=== PATIENT | male | born 1975 | race Caucasian/White ===

== ENCOUNTER → 2019-09-03 08:41 | Outpatient (BNVA) | payer MEDICARE, SELFPAY | PROVIDERS: Family Provider Nurse Practitioner Family; PCP Nurse Practitioner Family; Visit Provider Nurse Practitioner | DX: G89.29 Other chronic pain (principal); M54.42 Lumbago with sciatica, left side; M25.552 Pain in left hip; Z98.890 Other specified postprocedural states; Z87.828 Personal history of other (healed) physical injury and trauma; Z79.891 Long term (current) use of opiate analgesic | CPT/HCPCS: 99214 ==

== ENCOUNTER → 2019-10-01 11:15 | Outpatient (BNVA) | payer MEDICARE, SELFPAY | PROVIDERS: Family Provider Nurse Practitioner Family; PCP Nurse Practitioner Family; Visit Provider Nurse Practitioner | DX: G89.29 Other chronic pain (principal); M54.42 Lumbago with sciatica, left side; Z79.891 Long term (current) use of opiate analgesic | CPT/HCPCS: 99213 ==

== ENCOUNTER → 2019-10-29 14:26 | Outpatient (BNVA) | payer MEDICARE, SELFPAY | PROVIDERS: Family Provider Nurse Practitioner Family; PCP Nurse Practitioner Family; Visit Provider Anesthesiology | DX: M54.42 Lumbago with sciatica, left side (principal); M43.16 Spondylolisthesis, lumbar region; Z87.828 Personal history of other (healed) physical injury and trauma; Z79.891 Long term (current) use of opiate analgesic | CPT/HCPCS: 99213; 99214 ==

== ENCOUNTER → 2020-03-12 09:46 | Outpatient (BNVA) | payer MEDICARE, SELFPAY | PROVIDERS: Family Provider Nurse Practitioner Family; PCP Nurse Practitioner Family; Visit Provider Anesthesiology | DX: G89.29 Other chronic pain (principal); M54.42 Lumbago with sciatica, left side; M43.16 Spondylolisthesis, lumbar region; Z87.828 Personal history of other (healed) physical injury and trauma; Z79.891 Long term (current) use of opiate analgesic | CPT/HCPCS: 99214 ==

== ENCOUNTER → 2020-03-16 09:21 | Outpatient (BNVA) | payer MEDICARE, SELFPAY | PROVIDERS: Family Provider Nurse Practitioner Family; PCP Nurse Practitioner Family; Visit Provider Nurse Practitioner Family | DX: E78.2 Mixed hyperlipidemia (principal); E34.9 Endocrine disorder, unspecified; F41.9 Anxiety disorder, unspecified; F32.9 Major depressive disorder, single episode, unspecified; E29.1 Testicular hypofunction; E55.9 Vitamin D deficiency, unspecified; M79.673 Pain in unspecified foot; Z79.899 Other long term (current) drug therapy; R53.83 Other fatigue | CPT/HCPCS: 73610; 73630; 80061; 81001; 83036; 84403; 84443 ==

== ENCOUNTER → 2020-04-15 15:29 | Outpatient (BNVA) | payer MEDICARE, SELFPAY | PROVIDERS: Family Provider Nurse Practitioner Family; PCP Nurse Practitioner Family; Referring Provider Nurse Practitioner Family; Visit Provider Podiatrist Foot & Ankle Surgery | DX: T14.8XXA Other injury of unspecified body region, initial encounter (principal); X58.XXXA Exposure to other specified factors, initial encounter | CPT/HCPCS: 73610 ==

== ENCOUNTER 2020-04-15 16:02 | Outpatient (CLI) | payer MEDICARE, SELFPAY | END 2020-04-15 16:03 | disposition home or self-care (01) | LOC: SPT 16:03 | PROVIDERS: Family Provider Nurse Practitioner Family; PCP Nurse Practitioner Family; Visit Provider Podiatrist Foot & Ankle Surgery | DX: Z45.89 Encounter for adjustment and management of other implanted devices (principal); S92.109D Unspecified fracture of unspecified talus, subsequent encounter for fracture with routine healing; S82.53XD Displaced fracture of medial malleolus of unspecified tibia, subsequent encounter for closed fracture with routine healing; X58.XXXD Exposure to other specified factors, subsequent encounter | CPT/HCPCS: 73610; 97760; L4361 ==

== ENCOUNTER → 2020-04-29 14:22 | Outpatient (BNVA) | payer MEDICARE, SELFPAY | PROVIDERS: Family Provider Nurse Practitioner Family; PCP Nurse Practitioner Family; Visit Provider Podiatrist Foot & Ankle Surgery | DX: S82.892A Other fracture of left lower leg, initial encounter for closed fracture (principal); X58.XXXA Exposure to other specified factors, initial encounter; Z46.89 Encounter for fitting and adjustment of other specified devices; S82.53XD Displaced fracture of medial malleolus of unspecified tibia, subsequent encounter for closed fracture with routine healing; S92.109D Unspecified fracture of unspecified talus, subsequent encounter for fracture with routine healing; X58.XXXD Exposure to other specified factors, subsequent encounter | CPT/HCPCS: 73610; 97760; L1902 ==

== ENCOUNTER 2020-04-29 15:13 | Outpatient (CLI) | payer MEDICARE, SELFPAY | END 2020-04-29 15:14 | disposition home or self-care (01) | LOC: SPT 15:14 | PROVIDERS: Family Provider Nurse Practitioner Family; PCP Nurse Practitioner Family; Visit Provider Podiatrist Foot & Ankle Surgery | DX: Z46.89 Encounter for fitting and adjustment of other specified devices (principal); S82.53XD Displaced fracture of medial malleolus of unspecified tibia, subsequent encounter for closed fracture with routine healing; S92.109D Unspecified fracture of unspecified talus, subsequent encounter for fracture with routine healing; X58.XXXD Exposure to other specified factors, subsequent encounter | CPT/HCPCS: 97760; L1902 ==

== ENCOUNTER → 2020-05-19 09:58 | Outpatient (BNVA) | payer MEDICARE, SELFPAY | PROVIDERS: Family Provider Nurse Practitioner Family; PCP Nurse Practitioner Family; Visit Provider Anesthesiology | DX: G89.29 Other chronic pain (principal); M54.42 Lumbago with sciatica, left side; M43.16 Spondylolisthesis, lumbar region; M79.672 Pain in left foot; Z87.828 Personal history of other (healed) physical injury and trauma; Z79.891 Long term (current) use of opiate analgesic | CPT/HCPCS: 99213; 99214 ==

== ENCOUNTER → 2020-06-18 09:47 | Outpatient (BNVA) | payer MEDICARE, SELFPAY | PROVIDERS: Family Provider Nurse Practitioner Family; PCP Nurse Practitioner Family; Visit Provider Nurse Practitioner Family | DX: E34.9 Endocrine disorder, unspecified (principal); E11.9 Type 2 diabetes mellitus without complications; E55.9 Vitamin D deficiency, unspecified; E78.2 Mixed hyperlipidemia; R53.83 Other fatigue | CPT/HCPCS: 36415; 80053; 80061; 81003; 82306; 83036; 84402; 84403; 84443; 85025 ==

== ENCOUNTER → 2020-07-21 12:55 | Outpatient (BNVA) | payer MEDICARE, SELFPAY | PROVIDERS: Family Provider Nurse Practitioner Family; PCP Nurse Practitioner Family; Visit Provider Anesthesiology | DX: G89.29 Other chronic pain (principal); M43.16 Spondylolisthesis, lumbar region; M54.42 Lumbago with sciatica, left side; Z87.828 Personal history of other (healed) physical injury and trauma; Z79.891 Long term (current) use of opiate analgesic | CPT/HCPCS: 99212; 99214 ==

== ENCOUNTER → 2020-09-15 13:29 | Outpatient (BNVA) | payer MEDICARE, SELFPAY | PROVIDERS: Family Provider Nurse Practitioner Family; PCP Nurse Practitioner Family; Visit Provider Anesthesiology | DX: G89.29 Other chronic pain (principal); M54.42 Lumbago with sciatica, left side; M43.16 Spondylolisthesis, lumbar region; Z87.828 Personal history of other (healed) physical injury and trauma; Z79.899 Other long term (current) drug therapy; Z79.891 Long term (current) use of opiate analgesic | CPT/HCPCS: 99213 ==

== ENCOUNTER → 2020-10-20 14:15 | Outpatient (BNVA) | payer MEDICARE, SELFPAY | PROVIDERS: Family Provider Nurse Practitioner Family; PCP Nurse Practitioner Family; Visit Provider Anesthesiology | DX: G89.29 Other chronic pain (principal); M54.42 Lumbago with sciatica, left side; M43.16 Spondylolisthesis, lumbar region; Z87.828 Personal history of other (healed) physical injury and trauma; Z79.899 Other long term (current) drug therapy; Z79.891 Long term (current) use of opiate analgesic | CPT/HCPCS: 99213 ==

== ENCOUNTER → 2020-12-17 12:52 | Outpatient (BNVA) | payer MEDICARE, SELFPAY | PROVIDERS: Family Provider Nurse Practitioner Family; PCP Nurse Practitioner Family; Visit Provider Anesthesiology | DX: G89.29 Other chronic pain (principal); M54.42 Lumbago with sciatica, left side; M43.16 Spondylolisthesis, lumbar region; Z79.899 Other long term (current) drug therapy; Z87.828 Personal history of other (healed) physical injury and trauma; Z79.891 Long term (current) use of opiate analgesic | CPT/HCPCS: 99213 ==

== ENCOUNTER → 2021-01-13 10:40 | Outpatient (BNVA) | payer MEDICARE, SELFPAY | PROVIDERS: Family Provider Nurse Practitioner Family; PCP Nurse Practitioner Family; Visit Provider Nurse Practitioner Family | DX: E34.9 Endocrine disorder, unspecified (principal); E11.9 Type 2 diabetes mellitus without complications; E78.2 Mixed hyperlipidemia; J30.89 Other allergic rhinitis; E29.1 Testicular hypofunction | CPT/HCPCS: 80053; 80061; 83036; 84402; 84403; 85025; G0103 ==

== ENCOUNTER 2021-02-17 09:21 | Outpatient (CLI) | payer MEDICARE, SELFPAY ==
[2021-02-17 09:45] LABS: Basophils % 0.4 %; Hematocrit 56.5 % (42.0-52.0); Hemoglobin 18.7 g/dL (11.7-16.6); Lymphocytes # 2.2 10^3/uL (0.8-4.8); Lymphocytes % 29.2 %; Mean Corpuscular HGB Conc 33.1 g/dL (30.0-36.0); Mean Corpuscular Hemoglobin 29.5 pg (28.0-34.0); Mean Corpuscular Volume 89.3 fL (80-94); Monocytes # 0.6 10^3/uL (0.2-0.9); Monocytes % 7.9 %; Neutrophils # 4.74 10^3/uL (1.8-7.7); Nucleated Red Blood Cells % 0 %; Platelet Count 220 10^3/cmm (130-400); Red Blood Count 6.33 10^6/uL (4.1-5.3); Red Cell Distribution Width 13.7 % (12.1-15.1); White Blood Count 7.6 10^3/uL (4.0-10.0)
--- NOTE | 2021-02-17 11:29 | ONC CON_ITS ---
Dr. Hernandez New Patient Note Patient: Luiz Gurrola Unit #: [id number]: [id number] Dicatated By: Monica Hernandez M.D.Date of Visit: Feb 17, 2021 Onc MED New Patient/Consult Referring Physician: Андрей Merritt NP History of Present Illness: Mr. Luiz Gurrola, is a 45-year-old gentleman with a history of hypogonadism of unknown etiology, on injectable testosterone supplements every 2 weeks for over 1 year. As per patient last month was the first time when he was told about elevated hemoglobin hematocrit, patient went to see his PMD for routine follow-up and his CBC done on January 13, 2021 showed white blood count 7.4 hemoglobin 19 hematocrit 57.7 normal being less than 52%, platelets 229,000, his testosterone level was 74.5. Patient is complaining of off-and-on headaches now more regularly for the last few weeks, he has history of migraine headaches in the past. Denies any blurred vision or double vision, denies any shortness of breath or chest pain, denies any peripheral numbness, denies any palpitation or chest pain. Patient denies smoking, denies any family history of polycythemia blood disorder Past Medical History: Mr. Gurrola's medical history consists of anxiety, depression, hyperlipidemia, low testosterone, migraine, osteoporosis, polycythemia, type II diabetes, and vitamin d deficiency. Past Surgical History: Mr. Gurrola's surgical/procedural history consists of cholecystectomy, insertion of spinal cord stimulator in 2013, 2 level disc replacement in 2008, repair of spinal cord leak in 2006, and lumbar laminectomy in 2005. Medications: Cholecalciferol 1 Capsule (of 1.25 mg ) Oral daily, Effexor XR 1 Capsule (of 37.5 mg) Capsule SR 24 HR Oral daily, HYDROcodone-Acetaminophen 1 Tablet (of 10-325 mg) Oral q 4 hours, Imitrex Tablet Oral PRN, Januvia 1 Tablet (of 50 mg) Oral daily, Lovastatin 1 Tablet (of 20 mg) Oral daily, Singulair 1 Tablet (of 10 mg) Oral daily, Testosterone Cypionate 1 mL (of 200 mg/mL) Intramuscular q 14 days Allergies: fentaNYL Citrate, Methadone HCl, oxyCODONE HCl, and traMADol HCl. Social History: Mr. Gurrola is . Mr. Gurrola has never smoked. He drinks occasionally. 2-3 SHOTS OR CANS OF BEER PER MONTH. Family History: Mr. Gurrola's mother is alive: hypertension. Mr. Gurrola's father is alive: hypertension. Mr. Gurrola has 1 brother who is alive. Review Of Symptoms: Review of Systems is not available for this patient. Vital Signs: Performed on Feb 17, 2021 10:43: 3, 7, 0.00 (LOW), sq.m, 97 %, 64 /min, 18 /min, 126/86 mm(hg), 98.1 F (LOW), and 228 lbs (HIGH). Performance Status: 0 - Fully active, able to carry on all predisease activities without restrictions. (ECOG) Physical Examination: ENMT - No mouth sores, no thrush, no jaundice, no cervical lymphadenopathy, Respiratory - Lungs are clear to auscultation, Cardiovascular - Regular rate and rhythm of heart, Abdomen - Soft, bowel sounds present, Extremities - No visible edema. Lab/Imaging: Most recent lab results are not available for this patient. Impression: Polycythemia, most likely reactive/secondary due to erythropoietic stimulating effect of testosterone supplements,, other possibility could be due to hypoxia but less likely or polycythemia vera less likely Hypogonadism, of unknown etiology, on biweekly injectable testosterone supplement over a year Headaches, multifactorial and or probably due to above Plan: Discussed with patient regarding his labs white blood count 7.6 hemoglobin 18.7 hematocrit 56.5 RBC 6.33 normal being less than 5.3 platelets 220,000 Clinically, patient doing well except progressive headaches, etiology could be multifactorial, as per patient recently he had a CT scan of sinus done which showed no evidence of sinusitis, he has history of migraine headaches but these headaches are different and progressive so concern is whether it is due to hyperviscosity due to polycythemia so we will consider phlebotomy with 250 cc / 250 cc normal saline replacement to avoid hypovolemia. Patient was also advised to take 1 baby aspirin daily and also to maintain hydration. And stop testosterone supplement until hematocrit is below 50 then he can consider transdermal testosterone supplement as when compared to injectable testosterone supplement, there is less chances of polycythemia with transdermal. Patient is also awaiting appointment with endocrinology for evaluation of hypogonadism. And patient was also advised in case there is a worsening of headaches or any other symptoms or any focal weakness, he need to go to hospital otherwise he will return to clinic in 2 weeks with CBC Signed By: Monica Hernandez M.D. <<Signature on File>>
== END 2021-02-17 09:22 | disposition home or self-care (01) ==
LOC: ONCMED 09:25
PROVIDERS: Family Provider Nurse Practitioner Family; PCP Nurse Practitioner Family; Visit Provider Internal Medicine Hematology & Oncology
DX: D75.1 Secondary polycythemia (principal); E29.1 Testicular hypofunction; G44.89 Other headache syndrome; Z79.899 Other long term (current) drug therapy
CPT/HCPCS: 36415; 85025; 99204

== ENCOUNTER 2021-02-18 06:15 | Outpatient (CLI) | payer MEDICARE, SELFPAY ==
[2021-02-18] MEDS: sodium chloride 0.9% 250 ML 999 ML IV (12:40)
== END 2021-02-18 06:16 | disposition home or self-care (01) ==
LOC: ONCMED 06:17
PROVIDERS: PCP Nurse Practitioner Family; Visit Provider Internal Medicine Hematology & Oncology
DX: D45 Polycythemia vera (principal); E29.1 Testicular hypofunction; R51.9 Headache, unspecified; Z79.899 Other long term (current) drug therapy; Z87.891 Personal history of nicotine dependence
CPT/HCPCS: 99195; 99213; J7050

== ENCOUNTER 2021-03-10 05:59 | Outpatient (CLI) | payer MEDICARE, SELFPAY ==
[2021-03-10 08:08] LABS: Basophils # 0.1 10^3/uL (0.0-0.1); Basophils % 0.6 %; Eosinophils % 0.1 %; Hematocrit 51.2 % (42.0-52.0); Hemoglobin 17.1 g/dL (11.7-16.6); Lymphocytes # 3.1 10^3/uL (0.8-4.8); Lymphocytes % 39.8 %; Mean Corpuscular HGB Conc 33.4 g/dL (30.0-36.0); Mean Corpuscular Hemoglobin 29.3 pg (28.0-34.0); Mean Corpuscular Volume 87.7 fL (80-94); Monocytes # 0.5 10^3/uL (0.2-0.9); Monocytes % 6.9 %; Neutrophils # 4.09 10^3/uL (1.8-7.7); Neutrophils % 52.3 %; Nucleated Red Blood Cells % 0 %; Platelet Count 234 10^3/cmm (130-400); Red Blood Count 5.84 10^6/uL (4.1-5.3); Red Cell Distribution Width 12.7 % (12.1-15.1); White Blood Count 7.8 10^3/uL (4.0-10.0)
[2021-03-10] MEDS: sodium chloride 0.9% 250 ML 999 ML IV (10:40)
--- NOTE | 2021-03-10 18:25 | ONC FU_ITS ---
Dr. Hernandez follow up note Patient: Luiz Gurrola Unit #: [id number]: [id number] Dicatated By: Monica Hernandez M.D.Date of Visit:Mar 10, 2021 Onc Med Follow-up/Prog Note History of Present Illness: Mr. Luiz Gurrola, is a 45-year-old gentleman with a history of hypogonadism of unknown etiology, on injectable testosterone supplements every 2 weeks for over 1 year. As per patient last month was the first time when he was told about elevated hemoglobin hematocrit, patient went to see his PMD for routine follow-up and his CBC done on January 13, 2021 showed white blood count 7.4 hemoglobin 19 hematocrit 57.7 normal being less than 52%, platelets 229,000, his testosterone level was 74.5. Patient is complaining of off-and-on headaches now more regularly for the last few weeks, he has history of migraine headaches in the past. Denies any blurred vision or double vision, denies any shortness of breath or chest pain, denies any peripheral numbness, denies any palpitation or chest pain. Patient denies smoking, denies any family history of polycythemia blood disorder Came for follow-up, denies any specific complaint, as per patient since he had phlebotomy done, his headaches are gone by 70 to 80% and he is also off testosterone injection. No fever chills, no nausea or vomiting no diarrhea or constipation, no headaches or blurred vision or double vision, no focal weakness, patient has chronic lower back pain patient tolerated his first phlebotomy on February 18, 2021. Medications: Adult Aspirin EC Low Strength (81 mg) Tablet, enteric coated Oral daily, Cholecalciferol 1 Capsule (of 1.25 mg ) Oral daily, Effexor XR 1 Capsule (of 37.5 mg) Capsule SR 24 HR Oral daily, HYDROcodone-Acetaminophen 1 Tablet (of 10-325 mg) Oral q 4 hours, Imitrex Tablet Oral PRN, Januvia 1 Tablet (of 50 mg) Oral daily, Lovastatin 1 Tablet (of 20 mg) Oral daily, Singulair 1 Tablet (of 10 mg) Oral daily, Testosterone Cypionate 1 mL (of 200 mg/mL) Intramuscular q 14 days Allergies: fentaNYL Citrate, Methadone HCl, oxyCODONE HCl, and traMADol HCl. Review of Systems: Review of Systems is not available for this patient. Vital Signs: Performed on Mar 10, 2021 09:43 Weight - 225.4 lbs (LOW) BSA - 0.00 sq.m BMI - 0.00 Temperature - 97.5 F (LOW) Pulse - 65 /min Respiration - 18 /min BP - 134/92 mm(hg) O2 Sat - 99 % Pain - 7 Fatigue - 0 Performance Status: 0 - Fully active, able to carry on all predisease activities without restrictions. (ECOG) Physical Examination: ENMT - No mouth sores, no thrush, no jaundice, Respiratory - Lungs are clear to auscultation, Cardiovascular - Regular rate and rhythm of heart, Abdomen - Soft, bowel sounds present, Extremities - No visible edema. Lab/Imaging: Most recent lab results are not available for this patient. Impression: Polycythemia, most likely reactive/secondary due to erythropoietic stimulating effect of testosterone supplements,, other possibility could be due to hypoxia but less likely or polycythemia vera less likely Hypogonadism, of unknown etiology, on biweekly injectable testosterone supplement over a year Headaches, multifactorial and or probably due to above Plan: Discussed with patient regarding his labs white blood count 7.8 hemoglobin 17.1 hematocrit 51.2 compared to 56.5, prior to phlebotomy done on February 18, 2021, platelets 234,000 Clinically, patient doing well with no signs symptoms rather significant improvement in chronic headaches since phlebotomy done on February 18, 2021, today's labs show significant improvement in hematocrit now down to 51.2 compared to 56.5 prior to phlebotomy, will proceed with another phlebotomy with 250 cc and replacement with 250 cc normal saline and the meantime patient will continue with aspirin and goal is to keep hematocrit below 54 acquired polycythemia probably due to androgen supplement but we will also consider EPO level as well as JAK2 mutation as if polycythemia vera is confirmed in that case we will consider hematocrit below 45. Patient will return to clinic in 1 month with CBC and that time will discuss with him regarding his lab work-up as mentioned above and patient was advised to maintain hydration and as far as testosterone supplement is concerned, would recommend transdermal testosterone supplement compared to injectable as risk of acquired polycythemia due to androgen supplement is low with transdermal testosterone supplement compared to parenteral. Case was discussed with patient's primary, who will prescribe him transdermal testosterone patches and monitor his testosterone level. Signed By: Monica Hernandez M.D. <<Signature on File>>
[2021-03-11 15:34] LABS: Erythropoietin 13.9 mIU/mL (2.6-18.5)
[2021-03-16 16:13] LABS: CALR Exon 9 Mutation NOT DETECTED (NOT DETECTED); CSF3R Exon 14/17 Mutation NOT DETECTED (NOT DETECTED); JAK2 Exon 12 Mutation NOT DETECTED (NOT DETECTED); JAK2 V617 Block Specimen ID NG; JAK2 V617 Clinical Indication NG; JAK2 V617 Mutation NOT DETECTED (NOT DETECTED); JAK2 V617 Specimen Source NG; MPL Exon 12 Mutation NOT DETECTED (NOT DETECTED)
== END 2021-03-10 06:00 | disposition home or self-care (01) ==
PROVIDERS: PCP Nurse Practitioner Family; Visit Provider Internal Medicine Hematology & Oncology
DX: D75.1 Secondary polycythemia (principal); E29.1 Testicular hypofunction; Z79.899 Other long term (current) drug therapy; R51.9 Headache, unspecified
CPT/HCPCS: 36415; 81270; 82668; 85025; 96365; 99195; 99215; J7050

== ENCOUNTER 2021-04-13 08:24 | Outpatient (CLI) | payer MEDICARE, SELFPAY ==
[2021-04-13 09:20] LABS: Basophils % 0.3 %; Eosinophils # 0.1 10^3/uL (0.0-0.8); Eosinophils % 1.5 %; Hematocrit 45.7 % (42.0-52.0); Hemoglobin 15.6 g/dL (11.7-16.6); Lymphocytes # 2.4 10^3/uL (0.8-4.8); Lymphocytes % 39.8 %; Mean Corpuscular HGB Conc 34.1 g/dL (30.0-36.0); Mean Corpuscular Hemoglobin 29.7 pg (28.0-34.0); Mean Platelet Volume 10.1 fL (7.4-10.4); Monocytes # 0.6 10^3/uL (0.2-0.9); Monocytes % 9.6 %; Neutrophils # 2.94 10^3/uL (1.8-7.7); Neutrophils % 48.6 %; Nucleated Red Blood Cells % 0 %; Platelet Count 254 10^3/cmm (130-400); Red Blood Count 5.25 10^6/uL (4.1-5.3); Red Cell Distribution Width 12.6 % (12.1-15.1); White Blood Count 6.1 10^3/uL (4.0-10.0)
--- NOTE | 2021-04-13 11:26 | ONC FU_ITS ---
Dr. Hernandez follow up note Patient: Luiz Gurrola Unit #: [id number]: [id number] Dicatated By: Monica Hernandez M.D.Date of Visit:Apr 13, 2021 Onc Med Follow-up/Prog Note History of Present Illness: Mr. Luiz Gurrola, is a 45-year-old gentleman with a history of hypogonadism of unknown etiology, on injectable testosterone supplements every 2 weeks for over 1 year. As per patient last month was the first time when he was told about elevated hemoglobin hematocrit, patient went to see his PMD for routine follow-up and his CBC done on January 13, 2021 showed white blood count 7.4 hemoglobin 19 hematocrit 57.7 normal being less than 52%, platelets 229,000, his testosterone level was 74.5. Patient is complaining of off-and-on headaches now more regularly for the last few weeks, he has history of migraine headaches in the past. Denies any blurred vision or double vision, denies any shortness of breath or chest pain, denies any peripheral numbness, denies any palpitation or chest pain. Patient denies smoking, denies any family history of polycythemia blood disorder Came for follow-up, denies any specific complaints, no more headaches since he underwent phlebotomy, also stopped using injectable testosterone now started on transdermal testosterone patch. But complaining of generalized weakness and fatigue, patient on hydrocodone for chronic back pain, as per patient he has history of sleep apnea in the past, at that time he thought it was due to methadone, which he stopped taking it now on hydrocodone. Patient also reported getting up at night gasping for air and also turning and tossing all night and feels sleepy during daytime. Medications: Adult Aspirin EC Low Strength (81 mg) Tablet, enteric coated Oral daily, Cholecalciferol 1 Capsule (of 1.25 mg ) Oral daily, HYDROcodone-Acetaminophen 1 Tablet (of 10-325 mg) Oral q 4 hours, Imitrex Tablet Oral PRN, Januvia 1 Tablet (of 50 mg) Oral daily, Lovastatin 1 Tablet (of 20 mg) Oral daily, Saffron Tablet, Singulair 1 Tablet (of 10 mg) Oral daily, Testosterone Cypionate 1 mL (of 200 mg/mL) Intramuscular q 14 days Allergies: fentaNYL Citrate, Methadone HCl, oxyCODONE HCl, and traMADol HCl. Review of Systems: Review of Systems is not available for this patient. Vital Signs: Performed on Apr 13, 2021 10:12 Weight - 227.8 lbs (HIGH) BSA - 0.00 sq.m BMI - 0.00 Temperature - 97 F (LOW) Pulse - 78 /min Respiration - 18 /min BP - 131/86 mm(hg) O2 Sat - 96 % Pain - 0 Fatigue - 0 Performance Status: 0 - Fully active, able to carry on all predisease activities without restrictions. (ECOG) Physical Examination: ENMT - No mouth sores, no thrush, no jaundice, Respiratory - Lungs are clear to auscultation, Cardiovascular - Regular rate and rhythm of heart, Abdomen - Soft, bowel sounds present, Extremities - No visible edema. Lab/Imaging: Most recent lab results are not available for this patient. Impression: Polycythemia, most likely reactive/secondary due to erythropoietic stimulating effect of testosterone supplements,, other possibility could be due to hypoxia but less likely or polycythemia vera less likely, Molecular profiling for polycythemia done on March 10, 2021 shows no evidence of JAK2 mutation, further testing including CA LR exon 9 mutation, MPL exon 10 mutation, CSF3R exon 14/17 mutation showed no abnormality., Erythropoietin level 13.9 Hypogonadism, of unknown etiology, on biweekly injectable testosterone supplement over a year Headaches, multifactorial and or probably due to above, Resolved after phlebotomy Plan: Discussed with patient regarding his labs white blood count 6.1 hemoglobin 15.6 hematocrit 45.7 compared to 51.2 previously, platelets 254,000, molecular profiling for polycythemia including JAK2 mutation, and other showed no abnormality, erythropoietin level 13.9 Clinically, patient doing well, no new signs symptoms as far as polycythemia is concerned which is most likely secondary to testosterone supplement as molecular profiling including JAK2 mutation for polycythemia vera/myeloproliferative disorder showed no abnormality and other possibility could be underlying sleep apnea, clinically, based on his body weight and configuration e.g. increased abdominal girth and patient's description of his sleep pattern is consistent with sleep apnea thus we will recommend sleep study and if sleep apnea is confirmed, he may benefit from CPAP machine, which may help his secondary polycythemia too. Patient has switched his testosterone supplement from injectable to transdermal, which may help his polycythemia too, at this point, will monitor him and keep his hematocrit below 50-52 and patient was advised to maintain hydration and then return to clinic in 1 month with CBC Signed By: Monica Hernandez M.D. <<Signature on File>>
== END 2021-04-13 08:25 | disposition home or self-care (01) ==
LOC: ONCMED 08:27
PROVIDERS: PCP Nurse Practitioner Family; Visit Provider Internal Medicine Hematology & Oncology
DX: D75.1 Secondary polycythemia (principal); E29.1 Testicular hypofunction; Z79.899 Other long term (current) drug therapy; R51.9 Headache, unspecified
CPT/HCPCS: 36415; 85025; 99214

== ENCOUNTER → 2021-04-16 13:18 | Outpatient (BNVA) | payer MEDICARE, SELFPAY | PROVIDERS: PCP Nurse Practitioner Family; Visit Provider Nurse Practitioner | DX: G89.29 Other chronic pain (principal); M54.42 Lumbago with sciatica, left side; M43.16 Spondylolisthesis, lumbar region; M25.552 Pain in left hip; M79.672 Pain in left foot; Z87.828 Personal history of other (healed) physical injury and trauma; Z79.891 Long term (current) use of opiate analgesic | CPT/HCPCS: 99213 ==

== ENCOUNTER 2021-05-18 11:56 | Outpatient (CLI) | payer MEDICARE, SELFPAY ==
[2021-05-18 12:51] LABS: Basophils % 0.3 %; Hematocrit 50.6 % (42.0-52.0); Hemoglobin 16.9 g/dL (11.7-16.6); Lymphocytes # 2.8 10^3/uL (0.8-4.8); Lymphocytes % 32.2 %; Mean Corpuscular HGB Conc 33.4 g/dL (30.0-36.0); Mean Corpuscular Hemoglobin 29.6 pg (28.0-34.0); Mean Corpuscular Volume 88.6 fl (80-94); Mean Platelet Volume 10.7 fL (7.4-10.4); Monocytes # 0.6 10^3/uL (0.2-0.9); Monocytes % 6.9 %; Neutrophils # 5.23 10^3/uL (1.8-7.7); Neutrophils % 60.3 %; Nucleated Red Blood Cells % 0 %; Platelet Count 243 10^3/cmm (130-400); Red Blood Count 5.71 10^6/uL (4.1-5.3); Red Cell Distribution Width 12.4 % (12.1-15.1); White Blood Count 8.7 10^3/uL (4.0-10.0)
--- NOTE | 2021-05-18 17:17 | ONC FU_ITS ---
Dr. Hernandez follow up note Patient: Luiz Gurrola Unit #: [id number]: [id number] Dicatated By: Monica Hernandez M.D.Date of Visit:May 18, 2021 Onc Med Follow-up/Prog Note History of Present Illness: Mr. Luiz Gurrola, is a 45-year-old gentleman with a history of hypogonadism of unknown etiology, on injectable testosterone supplements every 2 weeks for over 1 year. As per patient last month was the first time when he was told about elevated hemoglobin hematocrit, patient went to see his PMD for routine follow-up and his CBC done on January 13, 2021 showed white blood count 7.4 hemoglobin 19 hematocrit 57.7 normal being less than 52%, platelets 229,000, his testosterone level was 74.5. Patient is complaining of off-and-on headaches now more regularly for the last few weeks, he has history of migraine headaches in the past. Denies any blurred vision or double vision, denies any shortness of breath or chest pain, denies any peripheral numbness, denies any palpitation or chest pain. Patient denies smoking, denies any family history of polycythemia blood disorder Came for follow-up, denies any specific complaints, no fever chills, no nausea vomiting, no diarrhea constipation, no shortness of breath or chest heaviness, no headaches blurred vision double vision, patient is using transdermal testosterone supplement now instead of injectable, tolerating well, has seen endocrinology for hypogonadism, work-up is in progress Medications: Adult Aspirin EC Low Strength (81 mg) Tablet, enteric coated Oral daily, Cholecalciferol 1 Capsule (of 1.25 mg ) Oral daily, HYDROcodone-Acetaminophen 1 Tablet (of 10-325 mg) Oral q 4 hours, Imitrex Tablet Oral PRN, Januvia 1 Tablet (of 50 mg) Oral daily, Lovastatin 1 Tablet (of 20 mg) Oral daily, Saffron Tablet, Singulair 1 Tablet (of 10 mg) Oral daily, Testosterone Cypionate 1 mL (of 200 mg/mL) Intramuscular q 14 days Allergies: fentaNYL Citrate, Methadone HCl, oxyCODONE HCl, and traMADol HCl. Review of Systems: Review of Systems is not available for this patient. Vital Signs: Performed on May 18, 2021 16:22 Weight - 231.2 lbs (HIGH) BSA - 0.00 sq.m BMI - 0.00 Temperature - 97.3 F (LOW) Pulse - 105 /min (HIGH) Respiration - 18 /min BP - 131/90 mm(hg) O2 Sat - 98 % Pain - 7 Fatigue - 0 Performance Status: 0 - Fully active, able to carry on all predisease activities without restrictions. (ECOG) Physical Examination: ENMT - No mouth sores, no thrush, no jaundice, Respiratory - Lungs are clear to auscultation, Cardiovascular - Regular rate and rhythm of heart, Abdomen - Soft, bowel sounds present, Extremities - No visible edema. Lab/Imaging: Most recent lab results are not available for this patient. Impression: Polycythemia, most likely reactive/secondary due to erythropoietic stimulating effect of testosterone supplements,, other possibility could be due to hypoxia but less likely or polycythemia vera less likely, Molecular profiling for polycythemia done on March 10, 2021 shows no evidence of JAK2 mutation, further testing including CA LR exon 9 mutation, MPL exon 10 mutation, CSF3R exon 14/17 mutation showed no abnormality. Hypogonadism, of unknown etiology, on biweekly injectable testosterone supplement over a year Headaches, multifactorial and or probably due to above, Resolved after phlebotomy Plan: Discussed with patient regarding his labs white blood count 8.7 hemoglobin 16.9 hematocrit 50.6 compared to 45.7 previously platelets 243,000 Clinically, patient doing well with no new signs symptom, his follow-up labs shows progressive secondary polycythemia but hematocrit within normal range we will continue to monitor, patient return to clinic in 1 month with CBC, patient was advised to maintain hydration and continue taking daily aspirin Signed By: Monica Hernandez M.D. <<Signature on File>>
== END 2021-05-18 11:57 | disposition home or self-care (01) ==
LOC: ONCMED 11:56
PROVIDERS: PCP Nurse Practitioner Family; Visit Provider Internal Medicine Hematology & Oncology
DX: E23.7 Disorder of pituitary gland, unspecified (principal); E34.9 Endocrine disorder, unspecified; D75.1 Secondary polycythemia; E11.9 Type 2 diabetes mellitus without complications; E78.2 Mixed hyperlipidemia; F41.9 Anxiety disorder, unspecified; F32.9 Major depressive disorder, single episode, unspecified
CPT/HCPCS: 36415; 85025; 99204; 99214

== ENCOUNTER → 2021-05-25 08:22 | Outpatient (BNVA) | payer MEDICARE, SELFPAY | PROVIDERS: PCP Nurse Practitioner Family; Visit Provider Internal Medicine | DX: D75.1 Secondary polycythemia (principal); E11.9 Type 2 diabetes mellitus without complications; E23.7 Disorder of pituitary gland, unspecified; E34.9 Endocrine disorder, unspecified; E78.2 Mixed hyperlipidemia | CPT/HCPCS: 82533; 84146; 84305; 84403; 84439; 84443 ==

== ENCOUNTER 2021-06-18 09:18 | Outpatient (CLI) | payer MEDICARE, SELFPAY ==
--- NOTE | 2021-06-18 09:30 | MR_ITS ---
WS: [id number] MRI BRAIN WITHOUT AND WITH CONTRAST, ATTENTION DIRECTED TO THE PITUITARY GLAND HISTORY: Low testosterone. COMPARISON: None available. TECHNIQUE: Diffusion-weighted imaging, axial T2 sequence, and postcontrast images in 3 planes are per formed. High-resolution coronal and sagittal imaging performed through the pituitary region with and without intravenous gadolinium. Seen best on the high-resolution imaging through the pituitary gland as a nonenhancing 3 mm nodule in the midline of the sella turcica. This nodule is within the posterior inferior pituitary gland and l ikely pituitary microadenoma. There is no shift of the infundibulum. Optic chiasm remains normally po sitioned. No hemorrhage or edema within the brain. No prior infarcts. The magana-white matter differentiation is normal. No atrophy. Ventricles are normal size. No inferior displacement of cerebellar tonsils. Visua lized upper cervical cord is normal. No enhancing masses within the brain. There are small mucous retention cyst in the LEFT maxillary sinus. Remaining sinus cavities and masto id air cells are normal. MR/MR pituitary wo/w con* [id number] IMPRESSION: 1. 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 2. The remaining brain is negative. No enhancing masses or prior infarcts.
[2021-06-18] MEDS: gadobenate dimeglumine 20 mL vial IV (10:29)
== END 2021-06-18 09:19 | disposition home or self-care (01) ==
PROVIDERS: PCP Nurse Practitioner Family; Visit Provider Internal Medicine
DX: E23.7 Disorder of pituitary gland, unspecified (principal)
CPT/HCPCS: 70553; A9577

== ENCOUNTER → 2021-06-22 15:36 | Outpatient (BNVA) | payer MEDICARE, SELFPAY | PROVIDERS: PCP Nurse Practitioner Family; Visit Provider Nurse Practitioner Family | DX: S67.22XA Crushing injury of left hand, initial encounter (principal); X58.XXXA Exposure to other specified factors, initial encounter | CPT/HCPCS: 73130 ==

== ENCOUNTER → 2021-06-25 09:29 | Outpatient (BNVA) | payer MEDICARE, SELFPAY | PROVIDERS: PCP Nurse Practitioner Family; Visit Provider Anesthesiology | DX: G89.29 Other chronic pain (principal); M54.42 Lumbago with sciatica, left side; M43.16 Spondylolisthesis, lumbar region; Z87.828 Personal history of other (healed) physical injury and trauma; Z79.899 Other long term (current) drug therapy; Z79.891 Long term (current) use of opiate analgesic | CPT/HCPCS: 99213 ==

== ENCOUNTER → 2021-07-06 10:13 | Outpatient (BNVA) | payer MEDICARE, SELFPAY | PROVIDERS: PCP Nurse Practitioner Family; Visit Provider Internal Medicine | DX: E23.7 Disorder of pituitary gland, unspecified (principal); E34.9 Endocrine disorder, unspecified; D75.1 Secondary polycythemia | CPT/HCPCS: 99214 ==

== ENCOUNTER → 2021-08-03 09:12 | Outpatient (BNVA) | payer MEDICARE, SELFPAY | PROVIDERS: PCP Nurse Practitioner Family; Visit Provider Internal Medicine | DX: E23.7 Disorder of pituitary gland, unspecified (principal); E34.9 Endocrine disorder, unspecified; D75.1 Secondary polycythemia | CPT/HCPCS: 84146; 84402; 84403; 85025 ==

== ENCOUNTER → 2021-08-05 10:42 | Outpatient (BNVA) | payer MEDICARE, SELFPAY | PROVIDERS: PCP Nurse Practitioner Family; Visit Provider Internal Medicine | DX: E34.9 Endocrine disorder, unspecified (principal); E23.7 Disorder of pituitary gland, unspecified; D75.1 Secondary polycythemia | CPT/HCPCS: 99214 ==

== ENCOUNTER → 2021-08-10 14:04 | Outpatient (BNVA) | payer MEDICARE, SELFPAY | PROVIDERS: PCP Nurse Practitioner Family; Visit Provider Internal Medicine | DX: E34.9 Endocrine disorder, unspecified (principal) | CPT/HCPCS: 84403 ==

== ENCOUNTER → 2021-08-19 10:33 | Outpatient (BNVA) | payer MEDICARE, SELFPAY | PROVIDERS: PCP Nurse Practitioner Family; Visit Provider Anesthesiology | DX: G89.29 Other chronic pain (principal); M54.42 Lumbago with sciatica, left side; M43.16 Spondylolisthesis, lumbar region; Z87.828 Personal history of other (healed) physical injury and trauma; Z79.899 Other long term (current) drug therapy; Z79.891 Long term (current) use of opiate analgesic | CPT/HCPCS: 99213 ==

== ENCOUNTER → 2021-10-21 08:58 | Outpatient (BNVA) | payer MEDICARE, SELFPAY | PROVIDERS: PCP Nurse Practitioner Family; Visit Provider Internal Medicine | DX: E34.9 Endocrine disorder, unspecified (principal) | CPT/HCPCS: 84403 ==

== ENCOUNTER → 2022-02-04 08:50 | Outpatient (BNVA) | payer MEDICARE, SELFPAY | PROVIDERS: PCP Nurse Practitioner Family; Visit Provider Internal Medicine | DX: E23.7 Disorder of pituitary gland, unspecified (principal); E34.9 Endocrine disorder, unspecified | CPT/HCPCS: 84153; 84402; 84403; 85025 ==

== ENCOUNTER 2022-02-09 06:46 | Outpatient (CLI) | payer MEDICARE, SELFPAY ==
--- NOTE | 2022-02-09 07:15 | MR_ITS ---
WS: [id number] MRI LUMBAR SPINE NONCONTRAST HISTORY: INTERVERTEBRAL DISORDERS W/RADICULOPATHY COMPARISON: 03/20/2008 TECHNIQUE: Sagittal and axial multisequence imaging is submitted. Since the prior examination patient has undergone posterior fusion at the L4-5 level with interbody s pacers. Significant artifact from L4 to S1 obscuring detail of the disc and osseous structures. L1-L4 is normally aligned posteriorly. Disc spaces are preserved. Disc spaces and vertebral body heights are well-preserved. Conus terminates normally at L1-2 disc level. L1-L2: Normal. L2-L3: Normal. L3-L4: Mild ligamentum flavum hypertrophy.. Mild annular disc bulge. No disc protrusions or significa nt stenosis. L4-L5: There is significant artifact at the disc space. Mild ligamentum flavum hypertrophy. No disc p rotrusions are identified. Mild to moderate LEFT foraminal stenosis. Mild bilateral subarticular rece ss encroachment. L5-S1: Asymmetric disc bulging extends to the LEFT. There is significant artifact from the spinal yokasta dware but I do believe there is a disc protrusion asymmetric to the LEFT contacting and posteriorly d isplacing the LEFT S1 nerve root. Loss of fat in the foramen greatest on the LEFT cyst is probably so me moderate LEFT foraminal stenosis. Paravertebral soft tissues are normal. MR/MR lumbar spine wo con* [id number] IMPRESSION: 1. Since the prior study patient is status post lumbar fusion. Probable anteri or lumbar fusion. 2. Despite the artifact there is asymmetric disc bulging with a focal protrusi on abutting the LEFT S1 nerve root causing at least a moderate LEFT foraminal s tenosis at L5-S1. 3. Mild bilateral subarticular recess stenosis at L4-5. Mild to moderate LEFT foraminal stenosis at L4-5.
== END 2022-02-09 06:47 | disposition home or self-care (01) ==
LOC: RAD 06:46
PROVIDERS: PCP Nurse Practitioner Family; Visit Provider Nurse Practitioner Psychiatric/Mental Health
DX: M54.16 Radiculopathy, lumbar region (principal); M48.061 Spinal stenosis, lumbar region without neurogenic claudication
CPT/HCPCS: 72148

== ENCOUNTER 2022-04-01 07:42 | Outpatient (CLI) | payer MEDICARE, SELFPAY ==
--- NOTE | 2022-04-01 08:00 | MR_ITS ---
WS: [id number] MRI HEAD WITHOUT AND WITH CONTRAST TECHNIQUE: Sagittal T1, T2 axial, T2 axial FLAIR, axial susceptibility weighted imaging, axial diffus ion weighted images, and coronal T2 images were obtained. Pre and post-T1 axial and post T1 coronal i mages. ADC and FSPGR images. High-resolution imaging with attention to the pituitary. CLINICAL INFORMATION: pituitary abnormality COMPARISON: June 18, 2021 FINDINGS: Some images degraded motion artifact. No evidence of restricted diffusion to suggest acute ischemia. Ventricular system and basal cisterns are patent. No suspicious intracranial signal abnormalities. Normal posterior fossa. Normal vascular flow voids at the skull base. No extra-axial fluid collections. No evidence of mass or mass effect. Paranasal sinuses and mastoid air cells well aerated. No hemosiderin on susceptibly weighted images. Normal optic chiasm and pituitary infundibulum. Cavernous sinuses and Meckel's cave are normal in cindy earance. No evidence of suprasellar mass. Previously described microadenoma not well seen today altho ugh images degraded by motion artifact. No evidence of progression. No evidence of suprasellar mass. No abnormal intracranial enhancement. Normal dural venous sinuses. MR/MR pituitary wo/w con* [id number] IMPRESSION: 1. Previously described microadenoma not as well seen today although some imag es degraded due to motion artifact. No evidence of progression. No evidence of suprasellar mass. 2. Normal optic chiasm and pituitary infundibulum. Cavernous sinuses and Mecke l's cave are normal. 3. No suspicious intracranial signal abnormalities. 4. No other significant changes compared to previous.
[2022-04-01] MEDS: gadobenate dimeglumine 20 mL vial IV (09:04)
== END 2022-04-01 07:43 | disposition home or self-care (01) ==
LOC: RAD 07:43
PROVIDERS: PCP Nurse Practitioner Family; Visit Provider Internal Medicine
DX: E23.7 Disorder of pituitary gland, unspecified (principal); R79.89 Other specified abnormal findings of blood chemistry
CPT/HCPCS: 70553

== ENCOUNTER → 2022-04-07 09:44 | Outpatient (BNVA) | payer MEDICARE, SELFPAY | PROVIDERS: PCP Nurse Practitioner Family; Visit Provider Internal Medicine | DX: E11.9 Type 2 diabetes mellitus without complications (principal); E78.5 Hyperlipidemia, unspecified; E23.7 Disorder of pituitary gland, unspecified; E34.9 Endocrine disorder, unspecified; E55.9 Vitamin D deficiency, unspecified; E78.2 Mixed hyperlipidemia; R79.89 Other specified abnormal findings of blood chemistry | CPT/HCPCS: 80053; 80061; 83036; 84146; 84403; 85025 ==

== ENCOUNTER → 2022-04-12 08:26 | Outpatient (BNVA) | payer MEDICARE, SELFPAY | PROVIDERS: PCP Registered Nurse; Visit Provider Internal Medicine | DX: E34.9 Endocrine disorder, unspecified (principal); E23.7 Disorder of pituitary gland, unspecified; D75.1 Secondary polycythemia; R79.89 Other specified abnormal findings of blood chemistry | CPT/HCPCS: 99214 ==

== ENCOUNTER 2022-04-19 13:45 | Outpatient (CLI) | payer MEDICARE, SELFPAY ==
--- NOTE | 2022-04-19 | XR_ITS ---
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 There are disc spacers at L4-5 and L5-S1. There may be posterior di splacement of the spacer at the L5-S1 level which might cause some canal stenosis. Facet DJD at L4-5 and L5-S1. Remaining disc spaces are relatively well maintained. Remaining posterior elements are unr emarkable. XR/XR lumbar spine min 4V [id number] IMPRESSION: 1. Disc spacers at L4-5 and L5-S1. There may be posterior displacement of the L 5-S1 spacer that might cause some spinal canal stenosis. 2. No fracture or malalignment. Degenerative changes.
--- NOTE | 2022-04-19 | CT_ITS ---
WS: [id number] CT LUMBAR SPINE, noncontrast. HISTORY: LOW BACK PAIN TECHNIQUE: Contiguous 2.5 mm axial imaging are performed. Sagittal and coronal reformats are submitte d and reviewed. [facility] CT [facility] use at least one of these dose optimization techni ques: automated exposure control; mA and/or kV adjustment per patient size (includes targeted exams w here dose is matched to clinical indication); or iterative reconstruction. IV contrast: None DLP: 1841.02 mGy.cm COMPARISON: Radiographs 04/19/2022 Patient is status post disc spacers at L4-5 and L5-S1. Spacers involving the L4-5 disc space are norm ally aligned. At the L5-S1 disc space. Spacer along the S1 articular surfaces posteriorly displaced b y 6 mm with respect to the space or along the inferior endplate of L5. Disc spaces are mildly restore d. No fractures are identified. L1-2: Normal. L2-3: Normal. L3-4: Mild disc bulging. No stenosis. L4-5: Mild disc bulging and mild facet joint arthritis. Very mild encroachment upon the subarticular recesses but no high-grade stenosis. L5-S1: Hypertrophic osteophyte extends posterior and to the LEFT at the disc level. There is also ass ociated facet joint arthritis, LEFT greater than RIGHT. Osteophyte and possible part of the interbody spacer encroach upon the LEFT lateral recess and foramen. There is probably contact on the LEFT S1 n erve root and mild encroachment upon the LEFT L5 nerve root also. Greater hypertrophic facet joint ar thritis on the LEFT. Only mild RIGHT foraminal narrowing. Posterior laminectomy defect. Mild atherosclerotic changes within the aorta. Nonobstructing 2 mm calcification LEFT kidney. CT/CT lumbar spine wo con* [id number] IMPRESSION: 1. Patient is status post interbody spacers at L4-5 and L5-S1. 2. Interbody spacers at L5-S1 are not aligned. The inferior spacer along the s uperior endplate of S1 is posteriorly displaced by 6 mm with very slight encroa chment upon the ventral thecal sac. 3. Degenerative changes with hypertrophic osteophytes and facet disease and po ssibly part of the disc spacer encroach upon the LEFT S1 nerve root at the L5-S 1 level. Moderate LEFT subarticular recess and mild LEFT foraminal stenosis at L5-S1.
== END 2022-04-19 13:46 | disposition home or self-care (01) ==
LOC: RAD 13:46
PROVIDERS: PCP Registered Nurse; Visit Provider Neurological Surgery
DX: M47.816 Spondylosis without myelopathy or radiculopathy, lumbar region (principal)
CPT/HCPCS: 72110; 72131

== ENCOUNTER → 2022-11-17 14:10 | Outpatient (BNVA) | payer MEDICARE, SELFPAY | PROVIDERS: PCP Registered Nurse; Visit Provider Internal Medicine | DX: E34.9 Endocrine disorder, unspecified (principal); E23.7 Disorder of pituitary gland, unspecified; D75.1 Secondary polycythemia; R79.89 Other specified abnormal findings of blood chemistry; R97.20 Elevated prostate specific antigen [PSA]; E78.2 Mixed hyperlipidemia; Z79.890 Hormone replacement therapy | CPT/HCPCS: 99214 ==

== ENCOUNTER → 2022-11-22 09:07 | Outpatient (BNVA) | payer MEDICARE, SELFPAY | PROVIDERS: PCP Registered Nurse; Visit Provider Internal Medicine | DX: E34.9 Endocrine disorder, unspecified (principal); E23.7 Disorder of pituitary gland, unspecified; D75.1 Secondary polycythemia; R79.89 Other specified abnormal findings of blood chemistry; R97.20 Elevated prostate specific antigen [PSA] | CPT/HCPCS: 80053; 80061; 84146; 84153; 84403 ==

== ENCOUNTER → 2023-03-30 09:31 | Outpatient (BNVA) | payer MEDICARE, SELFPAY | PROVIDERS: PCP Registered Nurse; Visit Provider Registered Nurse | DX: E11.9 Type 2 diabetes mellitus without complications (principal) | CPT/HCPCS: 80053; 83036 ==

== ENCOUNTER → 2023-05-04 10:08 | Outpatient (BNVA) | payer MEDICARE, SELFPAY | PROVIDERS: PCP Registered Nurse; Referring Provider Registered Nurse; Visit Provider Student in an Organized Health Care Education/Training Program | DX: M67.431 Ganglion, right wrist (principal) | CPT/HCPCS: 73110; 99204 ==

== ENCOUNTER 2023-05-15 06:49 | Day surgery (SDC) | payer MEDICARE, SELFPAY ==
[2023-05-12 13:33] VITALS: BMI 35.4
[2023-05-15] VITALS (7 sets, daily range): BP systolic 80–139; BP diastolic 54–95; PULSE 52–72; RESP 10–18; TEMP 36.1–36.3; O2SAT 93–99
[2023-05-15 07:45] LABS: Glucose Point of Care 129 mg/dL (70-110)
[2023-05-15] MEDS: ketorolac 30 mg/mL INJ IVP (07:53)
[2023-05-15] MEDS: acetaminophen 1,000 MG/100 ML PIGGYBACK 400 MG IV (07:53)
[2023-05-15] MEDS: sodium chloride 0.9% 1,000 ML 30 ML IV (07:54)
--- NOTE | 2023-05-15 08:26 | P.HPUD_ITS ---
Surgery/Procedure H&P Update DATE OF PROCEDURE: May 15, 2023 DATE H&P PERFORMED: 05/04/23 H&P UPDATE INFORMATION: I have reviewed H&P completed within last 30 days, I have examined patient prior to procedure and No changes to prior documentation PREOP DIAGNOSIS: Right dorsal wrist ganglion cyst PRIMARY INDICATION FOR PROCEDURE: Right dorsal wrist ganglion cyst persistent pain and failure of conservative soniya atment PLANNED PROCEDURE: Operation Date: 05/15/23 08:30 Proposed Procedures p RIGHT WRIST GANGLION CYST EXCISION [id number](Right) - Lc Downing DO
[2023-05-15] MEDS: ceFAZolin 2,000 MG in sodium chloride 0.9% (plus) 50 ML 100 MG IV (08:57)
--- NOTE | 2023-05-15 09:01 | P.ANESASSM_ITS ---
Pre-Anesthetic Assessment Height/Weight: Height 1.75 m Weight 108.862 kg Temp Pulse Resp BP Pulse Ox O2 Del Method 97.1 F L 72 16 139/95 99 Room Air 05/15/23 07:38 05/15/23 07:38 05/15/23 07:38 05/15/23 07:38 05/15/23 07:38 05/15/23 07:38 Preop Diagnosis: Right dorsal wrist ganglion cyst Operation Date: 05/15/23 08:30 Proposed Procedures p RIGHT WRIST GANGLION CYST EXCISION [id number](Right) - Lc Wise, Familial anesthetic complications: none Was Beta Alondra taken within 24 hours: N/A Was Clonidine taken within 24 hours: N/A Last intake: Intake Last Liquid Date 05/14/23 Last Liquid Time 22:00 Last Solid Date 05/14/23 Last Solid Time 20:00 Social No alcohol and No tobacco Exam alert, oriented x 3, clear to auscultation bilaterally and regular rate & rhythm Airway Submandibular: within normal limits Cervical ROM: within normal limits Mallampati: Class II Dentition: full CV/HEM Polycythemia Metabolic Diabetes Mellitus, Hyperlipidemia and Morbid Obesity Neuropsych Anxiety and Depression Anesthetic Plan ASA status: 3 Anesthesia: Choice Medications/Allergies Home Medications Medication Instructions Recorded Confirmed Last Taken Type blood sugar diagnostic (Accu-Chek #100 ea 06/23/20 05/15/23 Unknown Rx Guide test strips) sumatriptan succinate 50 mg tablet 50 mg PO Q2H PRN migraine headache 02/02/21 05/12/23 Unknown Rx (Imitrex) #9 tabs aspirin 81 mg tablet,delayed 81 mg PO DAILY 04/16/21 05/12/23 05/12/23 History release (Ashlee Low Dose Aspirin) multivitamin 1 tab PO DAILY 04/16/21 05/12/23 Unknown History tizanidine 4 mg tablet 4 mg PO TID PRN muscle spasticity 08/19/21 05/12/23 05/12/23 Rx #90 tabs pregabalin 75 mg capsule 75 mg PO BID 30 days #60 caps 12/08/22 05/12/23 05/12/23 Rx testosterone (AndroGel) 2 pump topical DAILY #75 grams 01/11/23 05/12/23 05/12/23 Rx hydrocodone 5 mg-acetaminophen 325 1 tab PO Q6H PRN pain 5 days #20 05/15/23 Unknown Rx mg tablet tabs lovastatin 20 mg tablet 20 mg PO BEDTIME 05/15/23 05/15/23 05/14/23 History montelukast 10 mg tablet 10 mg PO DAILY 05/15/23 05/15/23 05/14/23 History ondansetron 4 mg disintegrating 4 mg PO Q8H PRN nausea and 05/15/23 Unknown Rx tablet vomiting 3 days #9 tabs sitagliptin phosphate 50 mg tablet 50 mg PO DAILY 05/15/23 05/15/23 05/13/23 History (Tessa) Allergies Allergy/AdvReac Type Severity Reaction Status Date / Time fentanyl Allergy breathing Verified 05/15/23 07:24 problems at bedtime methadone Allergy breathing Verified 05/15/23 07:24 problems at bedtime oxycodone [From Percocet] Allergy ALGY-Hives Verified 05/15/23 07:24 tramadol Allergy ALGY-Hives Verified 05/15/23 07:24 Current Medications Generic Name Dose Route Start Last Admin Trade Name Freq PRN Reason Stop Dose Admin Sodium Chloride 1,000 mls @ 30 mls/hr 05/15/23 07:15 05/15/23 07:54 Sodium Chloride 0.9% IV 05/16/23 07:14 30 mls/hr .Q24H SUKHI Administration PFSH Anesthesia Medical History Anxiety and depression Chronic left-sided low back pain with left-sided sciatica Diabetes mellitus Encounter for long-term (current) use of high-risk medication Encounter for long-term opiate analgesic use Environmental and seasonal allergies Fatigue History of back injury x3 Hypotestosteronemia Influenza vaccine needed Left foot pain Migraine Mixed hyperlipidemia Osteoporosis Pain in left hip Polycythemia Vitamin D deficiency Surgical History History of lumbar laminectomy 06/2006 at [facility] Hx of cholecystectomy Hx of lumbosacral spine surgery repair for spinal cord leak 08/2006 [facility] 2009 2 level disc replacement [facility] S/P insertion of spinal cord stimulator 2013 in [place] -TRIAL Family History Father Hypertension Mother Hypertension Social History Smoking and tobacco status: never smoked Second hand smoke exposure: No Alcohol intake: current Alcohol intake frequency: holidays/special occasions only Substance/Drug Use: never Adopted: No Caregiver/support person: No Lives independently: No Household members: spouse Marital status: service: No Current occupational status: disabled Current occupation: disabled Sexually active: Yes Do you think of yourself as: Straight/Heterosexual Current gender identity: Male Data Anesthesia Cardiac Studies: No Data to Display
[2023-05-15] MEDS: lidocaine-epi 1% 20 mL INJ 5 ML INJECTION (09:15)
[2023-05-15] MEDS: ROPivacaine 0.5% SDV 30 mL 25 MG INJECTION (09:15)
--- NOTE | 2023-05-15 09:47 | P.BOP_ITS ---
Date of Procedure: 05/15/2023 Surgeon: Lc Downing DO Diversional Therapist'S Assistant(s): Ahmet Downing PA-C Procedure(s) performed: Right wrist ganglion cyst excision Findings of the procedure(s): Right wrist ganglion cyst on the dorsal radial aspect large in size it communicates over the dorsal wrist capsule, procedure went as expected Estimated blood loss: 3 cc Specimen(s) removed: Large right wrist ganglion cyst excised and sent for path ology Post-operative diagnosis: Right wrist ganglion cyst
--- NOTE | 2023-05-15 09:49 | PM.OP ---
Operative Report Date of procedure: May 15, 2023 Surgeon: Lc Downing DO Hospital Admitting Clerk: Ahmet Downing PA-C PA-C was necessary for assistance in this case with retraction and protection of neurovascular structures while excising cyst off of neurovascular structures and dorsal capsule as well as assistance in wound closure Procedure: Preoperative diagnosis: Right wrist ganglion cyst Postoperative diagnosis: Right dorsal radial wrist ganglion cyst Procedure Right?dorsal radial?wrist ganglion cyst excision(3 cm x 2 cm x 1 cm) Specimens removed/disposition: Right?dorsal?wrist ganglion cyst excised and sent for pathology Surgeon: Lc Downing DO Estimated blood loss: 3mL Tourniquet time 19 minutes IV fluids: See anesthesia record Complications: None Findings: See operative report narrative Condition: stable Disposition: same day Brief History: Patient's been worked up in the outpatient setting and findings consistent with preoperative diagnosis.? Patient has a right?dorsal?wrist ganglion cyst.? Patient has attempted conservative treatment and this has become significantly painful and affecting certain activities of right wrist. we talked about treatment options as far as nonoperative and operative intervention.? At this point time patient like a more permanent solution in the lowest chance of recurrence and as result through shared decision making we agreed to proceed with a right??wrist ganglion cyst excision.? Patient understands risk benefits complication alternatives surgical nonsurgical treatment options.? Understanding risk of surgery patient agrees to proceed.? All questions answered.? Consent obtained in the office. Procedure: Patient seen evaluate in the preoperative holding area.? Consent was signed and reviewed with patient.? All questions were answered at that time.? Correct extremity was then marked.? Once seen evaluated by anesthesia patient was then brought back to the operative suite.? Patient was then placed in supine position all bony prominences well-padded patient was properly secured to the bed.? An armboard was then applied for the right upper extremity.? A nonsterile tourniquet was applied to the right upper extremity arm.? Patient then underwent anesthesia per the anesthesia department.? Once appropriately anesthetized the right upper extremity was then prepped and draped in standard orthopedic fashion.? Final timeout performed.? Patient received appropriate preoperative antibiotics. Under sterile aseptic technique I began with local anesthetic for my preplanned surgical site.? Then I utilized an Esmarch tourniquet to exsanguinate the right upper extremity to 250 mmHg Patient had a large soft mobile ganglion cyst which a incision was then centered longitudinally directly over the cyst over the?dorsal and radial?aspect of the right wrist.? sharp scalpel incision was made through skin and subcutaneous tissue.? I then switched to dissection scissors and spread longitudinally to identify branches of the superficial radial nerve.? These were protected throughout the case.? I immediately encountered the ganglion cyst which was just distal to the extensor retinaculum and over the first and second dorsal compartments. Patient had tendons adhered to the ganglion cyst I freed up all first and second dorsal compartment tendons off of the cyst I then performed a release of the first dorsal compartment to have appropriate mobilization and retraction. Patient did have adherence of this along the radial aspect of the wrist capsule identified the dorsal branch of the radial artery which was dissected and protected by my chef's assistant throughout this case I then tracked the ganglion cyst over to the dorsal wrist capsule. I then protected the tendons and identified the ganglion cyst subsequently dissected circumferentially all the way to the base which was connected to the?dorsal?capsule.? This was then transected at the base with bipolar electrocautery.? I did have to excise some of the?dorsal?capsule that communicated with the cyst this had a broad connection and cyst stalk to the?dorsal?capsule. I utilized bipolar electrocautery to to seal off the?dorsal?capsule and prevent any further cyst recurrence.? Cyst was then sent for pathology.? I then thoroughly irrigated the wound bed tourniquet was deflated.? Hemostasis was satisfactory with bipolar electrocautery.? I then closed the incision in layered fashion with 3-0 Vicryl suture subcutaneously and running Monocryl stitch for skin with Dermabond and Steri-Strips.? Xeroform over the incisions 4 x 4's ABD soft roll and a volar splint was applied.? Patient was then awakened from anesthesia and taken back in stable condition. Disposition: Patient taken back in stable condition recovering well.? Patient will receive appropriate discharge instructions as well as pain medication postoperatively.? Patient placed in a volar splint.? We will follow-up with in the orthopedic office in 2 weeks.? Patient understands of any questions or concerns and contact the office.
--- NOTE | 2023-05-15 10:06 | PM.PACU ---
PACU note Narrative: Patient is a 47-year-old male that just underwent a right wrist ganglion cyst removed. Patient transferred to PACU in stable condition. Pain is well controlled. Dressing on hand is dry and in place. Patient's fingers are warm and well-perfused. Patient can wiggle fingers. normal cap refill under 2 seconds. Patient has normal elbow range of motion. Unable to assess sensation due to residual localized anesthetic. Exam: awake Disposition: discharged
--- NOTE | 2023-05-15 15:14 | ANE.PACU2 ---
Inpatient post-anesthesia follow up: Airway intact: Yes Vital signs: Temperature 97.0 F Pulse Rate 54 Respiratory Rate 18 Blood Pressure 120/85 Pulse Oximetry 99 Oxygen Delivery Me thod Room Air Oxygen Flow Rate Fraction of Inspir ed Oxygen Hydration adequate: Yes Nausea and vomiting: No Pain level: 2 Mental status: Baseline
== END 2023-05-15 11:25 | disposition home or self-care (01) ==
PROVIDERS: PCP Registered Nurse; Visit Provider Student in an Organized Health Care Education/Training Program
PROC: (CPT 25111; principal; 2023-05-15 08:30)
DX: M67.431 Ganglion, right wrist (principal); E11.9 Type 2 diabetes mellitus without complications; E78.5 Hyperlipidemia, unspecified; E66.01 Morbid (severe) obesity due to excess calories; Z68.35 Body mass index [BMI] 35.0-35.9, adult; Z79.82 Long term (current) use of aspirin
CPT/HCPCS: 25111; 36416; 82962; 88304; J0131; J0690; J1885; J2704; J2795; J7030

== ENCOUNTER → 2023-05-30 07:46 | Outpatient (BNVA) | payer MEDICARE, SELFPAY | PROVIDERS: PCP Registered Nurse; Visit Provider Physician Assistant | DX: Z98.890 Other specified postprocedural states (principal) | CPT/HCPCS: 99024 ==

== ENCOUNTER → 2023-10-10 11:32 | Outpatient (BNVA) | payer MEDICARE, SELFPAY | PROVIDERS: PCP Registered Nurse; Visit Provider Registered Nurse | DX: E34.9 Endocrine disorder, unspecified (principal); I10 Essential (primary) hypertension; E11.9 Type 2 diabetes mellitus without complications; E23.7 Disorder of pituitary gland, unspecified; R79.89 Other specified abnormal findings of blood chemistry; E78.2 Mixed hyperlipidemia | CPT/HCPCS: 80053; 80061; 83036; 84146; 84403; 85025 ==

== ENCOUNTER → 2024-11-12 09:57 | Outpatient (BNVA) | payer MEDICARE, SELFPAY | PROVIDERS: PCP Registered Nurse; Visit Provider Registered Nurse | DX: E34.9 Endocrine disorder, unspecified (principal); E11.9 Type 2 diabetes mellitus without complications | CPT/HCPCS: 83036; 84403 ==

== ENCOUNTER → 2025-05-15 10:04 | Outpatient (BNVA) | payer MEDICARE, SELFPAY | PROVIDERS: PCP Registered Nurse; Visit Provider Registered Nurse | DX: E11.9 Type 2 diabetes mellitus without complications (principal); E34.9 Endocrine disorder, unspecified | CPT/HCPCS: 80053; 83036; 84403 ==